=== PATIENT | male | born 1960 | race Caucasian/White ===

== ENCOUNTER → 2016-09-10 | Outpatient (CLI) | payer BC ==
--- NOTE | 2016-09-11 10:28 | PE ---
EXAMINATION TYPE: PET CT fusion skull to thigh DATE OF EXAM: 09/10/2016 6:29 PM COMPARISON: No prior examinations at this facility. Prior PET/CT: None HISTORY: Non-Hodgkin's lymphoma, Follicular lymphoma, left arm. TECHNIQUE: Following the intravenous administration of 13.5 mCi of F-18 FDG, whole body images are p erformed from the skull base to the midthigh. Images are reviewed on the computer in the coronal, ax ial, and sagittal planes. Reconstructed rotating images are created on independent workstation and r eviewed on the computer. A localization and attenuation correction CT is performed in conjunction w ith the PET scan. DLP: 343.28 mGycm SCAN: Initial Blood glucose: 94 mg/dL Average Mediastinum SUV: 1.8 Average Liver SUV: 2.2 FINDINGS: NECK: There may be some increased uptake within the tonsillar pillars greatest on the left measuring SUV value of 4.4. THORAX: No abnormal uptake is evident within the axillary regions. Suspicious lymphadenopathy is not identified. There may be slightly prominent lymph node present in the axillary region which has an MALCOLM V value of 0.7 which can be normal. ABDOMEN: No abnormal uptake PELVIS: No abnormal uptake OSSEOUS STRUCTURES: No abnormal uptake LOCALIZATION CT: Subtle fullness of the left tonsillar pillar may be present compared to the right. T his could be within normal limits for patient. There is a 1.4 cm enlarged left axillary lymph node. A few small shoddy lymph nodes are present within the inferior left axillary region. Descending thorac ic aorta at the level of main pulmonary artery is 3.5 cm. The main pulmonary artery bifurcation is 2. 6 cm. COMPARISON: No comparison images available IMPRESSION: 1. There may be some abnormal uptake within the tonsillar pillars greater on the left. 2. Suspicious uptake within the left axillary region of the patient's diagnosis of lymphoma is not id entified. 3. No suspicious additional areas of uptake identified.
== END | disposition home or self-care (01) ==
LOC: RADPETMAIN 11:49
PROVIDERS: ATTEND Internal Medicine Hematology & Oncology
DX: C82.80 Other types of follicular lymphoma, unspecified site (principal)
CPT/HCPCS: 78815; A9552

== ENCOUNTER → 2016-12-10 | Outpatient (CLI) | payer BC ==
--- NOTE | 2016-12-12 08:08 | PE ---
EXAMINATION TYPE: PET CT fusion skull to thigh DATE OF EXAM: 12/10/2016 COMPARISON: Most recent PET CT September 10, 2016 and older outside study September 13, 2015 HISTORY: Lymphoma initially diagnosed left axilla in July 2015 just completed chemotherapy October per patient. TECHNIQUE: Following the intravenous administration of 13.07 mCi of F-18 FDG, whole body images are performed from the skull base to the midthigh. Images are reviewed on the computer in the coronal, a xial, and sagittal planes. Reconstructed rotating images are created on independent workstation and reviewed on the computer. A localization and attenuation correction CT is performed in conjunction with the PET scan. SCAN: Subsequent Scan FINDINGS: SKULL BASE AND NECK: No suspicious hypermetabolic uptake is seen in the neck to suggest new neck john nopathy. Symmetric increase uptake at level of vocal cords is felt to reflect product of phonation. CHEST, MEDIASTINUM, AND HILAR REGION: There is redemonstration of abnormal left axillary lymph node o n axial image 69 measuring 1.8 x 1.3 cm felt stable in size versus prior exam and continues to remain non-hypermetabolic. No new areas of abnormal hypermetabolic uptake are identified. ABDOMEN AND PELVIS: No new suspicious areas of abnormal hypermetabolic uptake are identified. Liver a nd spleen sizes are stable. Mild diffuse uptake throughout the liver is redemonstrated without suspic ious focal increased uptake clearly seen. OSSEOUS STRUCTURES: No suspicious areas of abnormal hypermetabolic uptake are seen. Mild diffuse upta ke is present without suspicious focal areas of abnormal uptake or sclerotic or lytic lesions present OTHER CT: Small degree of bilateral gynecomastia is redemonstrated. IMPRESSION: Stable nonhypermetabolic left axillary lymph node. No new areas of abnormal hypermetaboli c uptake are seen to suggest active lymphoma recurrence.
== END | disposition home or self-care (01) ==
LOC: RADPETMAIN 12:39
PROVIDERS: ATTEND Internal Medicine Hematology & Oncology
DX: C82.04 Follicular lymphoma grade I, lymph nodes of axilla and upper limb (principal)
CPT/HCPCS: 78815; A9552

== ENCOUNTER → 2017-11-04 | Outpatient (CLI) | payer BC ==
--- NOTE | 2017-11-05 17:22 | PE ---
EXAMINATION TYPE: PET CT fusion skull to thigh DATE OF EXAM: 11/04/2017 COMPARISON: NONE Prior PET/CT: 12/10/2016 HISTORY: Lymphoma TECHNIQUE: Following the intravenous administration of 13.07 mCi of F-18 FDG, whole body images are performed from the skull base to the midthigh. Images are reviewed on the computer in the coronal, a xial, and sagittal planes. Reconstructed rotating images are created on independent workstation and reviewed on the computer. A localization and attenuation correction CT is performed in conjunction with the PET scan. DLP: 407.65 mGycm SCAN: Subsequent Blood glucose: 89 mg/dL Average Mediastinum SUV: 1.9 Average Liver SUV: 2.34 FINDINGS: NECK: No abnormal uptake THORAX: No abnormal uptake. Previous abnormal left axillary lymph node is normal uptake with an SUV o f 0.76. ABDOMEN: No abnormal uptake PELVIS: No abnormal uptake OSSEOUS STRUCTURES: No abnormal uptake LOCALIZATION CT: Ascending thoracic aorta at the level of main pulmonary artery is 3.7 cm patent main pulmonary artery the bifurcation is 3.2 cm. A left axillary lymph node appears smaller currently kylah suring 1.2 cm compared to 1.4 cm. No suspicious uptake in this region is evident. COMPARISON: No significant interval changes. IMPRESSION: 1. No suspicious uptake to suggest recurrent or metastatic lymphoma.
== END | disposition home or self-care (01) ==
LOC: RADPETMAIN 07:51
PROVIDERS: ATTEND Internal Medicine Hematology & Oncology
DX: C82.04 Follicular lymphoma grade I, lymph nodes of axilla and upper limb (principal)
CPT/HCPCS: 78815; A9552

== ENCOUNTER → 2018-03-23 | Outpatient (CLI) | payer MEDICARE, OTHER ==
--- NOTE | 2018-03-25 12:08 | MR ---
EXAMINATION TYPE: MR lumbar spine wo con DATE OF EXAM: 03/23/2018 COMPARISON: HISTORY: LBP, radiates into buttocks x 3 mos, no trauma/surgery, hx lymphoma CONTRAST: 0 mL intravenous . TECHNIQUE: Multiplanar, multisequence images of the lumbar spine were acquired. FINDINGS: Osseous structures appear unremarkable. Mild endplate changes are present L5-S1. There is some increased T1 signal in the left sacral ala. L5-S1: Broad-based disc bulge is present. There is some extension beyond the endplates compatible wit h subligamentous disc herniation. This has mild anterior thecal sac compression. No stenosis is prese nt. Neural foramen are patent. L4-L5: Some posterior disc space narrowing is present. Minimal disc flattening of the anterior thecal sac is present. No spinal canal stenosis. No foraminal stenosis. Mild facet hypertrophy is present . Ligamentum flavum laxity is present to mild degree. L3-L4: Broad-based disc bulge is present. No spinal canal stenosis or neural foraminal stenosis is pr esent. No focal disc herniation is evident. L2-L3: Central disc bulging is present with mild anterior thecal sac flattening. No AP spinal canal s tenosis or neural foraminal stenosis is present. L1-L2: No significant disc bulge or disc herniation. No spinal canal stenosis. No foraminal stenosi s. T12-L1: No significant disc bulge or disc herniation. No spinal canal stenosis. No foraminal stenos is. IMPRESSION: 1. Subligamentous disc herniation which is broad-based at L5-S1 has mild anterior thecal sac contact. 2. Minimal bulging present L2-3 through L4-5. Anterior thecal sac contact is present without stenosis .
== END | disposition home or self-care (01) ==
LOC: RADMRIMAIN 20:45
PROVIDERS: ATTEND Orthopaedic Surgery
DX: M51.27 Other intervertebral disc displacement, lumbosacral region (principal)
CPT/HCPCS: 72148

== ENCOUNTER → 2018-05-19 | Outpatient (CLI) | payer MEDICARE, OTHER ==
--- NOTE | 2018-05-20 08:43 | PE ---
EXAMINATION TYPE: PET CT fusion skull to thigh DATE OF EXAM: 05/19/2018 COMPARISON: MRI lumbar spine 03/23/2018 Prior PET/CT: Most recent dated 11/04/2017 HISTORY: Lymphoma TECHNIQUE: Following the intravenous administration of 12.07 mCi of F-18 FDG, whole body images are performed from the skull base to the midthigh. Images are reviewed on the computer in the coronal, a xial, and sagittal planes. Reconstructed rotating images are created on independent workstation and reviewed on the computer. A localization and attenuation correction CT is performed in conjunction with the PET scan. DLP: 487.4 mGycm SCAN: Follow up subsequent Blood glucose: 88 mg/dL Average Mediastinum SUV: 1.49 Average Liver SUV: 2.17 FINDINGS: NECK: There is mild increased uptake in the region of the tonsils slightly greater on the right. Thi s has a maximum SUV value of 3.05. There is mild uptake in the region of the vocal cords likely relat ed to inflammation. THORAX: No suspicious uptake ABDOMEN: No suspicious uptake PELVIS: No suspicious uptake OSSEOUS STRUCTURES: No suspicious uptake LOCALIZATION CT: There is some mild prominence of the tonsils. Direct visualization could be performe d. Prior anterior cervical fusion is evident. The ascending thoracic aorta at the level of main pulmo nary artery is 3.3 cm. The main pulmonary artery bifurcation is 2.8 cm. The appendix is normal. COMPARISON: No significant interval changes evident. IMPRESSION: 1. No suspicious uptake to suggest metastatic disease. 2. Mild increased uptake in the region of the tonsils which may be slightly full on localization CT. Direct visualization can be performed. Solitary metastasis in this location would be unusual.
== END | disposition home or self-care (01) ==
LOC: RADPETMAIN 07:48
PROVIDERS: ATTEND Internal Medicine Hematology & Oncology
DX: C82.04 Follicular lymphoma grade I, lymph nodes of axilla and upper limb (principal)
CPT/HCPCS: 78815; A9552

== ENCOUNTER → 2020-06-26 | Outpatient (CLI) | payer MEDICARE, OTHER ==
--- NOTE | 2020-06-26 13:38 | PE ---
Nuclear medicine PET/CT HISTORY: Lymphoma, subsequent, C 82.04, left axilla Patient received 11 mCi F-18 FDG intravenously delayed scanning was performed from skull base to the mid thighs. Localization and attenuation correction CT scan was performed. Correlation prior nuclear medicine PET/CT 05/19/2018 Chest and neck: Some groundglass opacities present peripherally in the left lower lobe, there is asso ciated hypermetabolic uptake, SUV 3.7. Some groundglass opacity in the left upper lobe towards the ap ex shows an SUV only 2.1. There is no pleural pericardial effusion. There is a nodular density in the left upper lobe, axial image 97 measuring only approximately 5 mm, no associated uptake, these are i nterval findings. There is no mediastinal, axillary, or hilar adenopathy. No supraclavicular or cervi jovana adenopathy. ABDOMEN: No evident liver mass. No retroperitoneal adenopathy. There is no ascites. Right-sided colon ic uptake likely is physiologic. No other suspicious uptake. Osseous structures show no suspicious uptake. Degenerative disc change of the lower lumbar spine. Pos top change noted to the lower cervical spine. IMPRESSION: Indeterminate lung uptake, lung nodule.
== END | disposition home or self-care (01) ==
LOC: RADPETMAIN 09:52
PROVIDERS: ATTEND Internal Medicine Hematology & Oncology
DX: C82.04 Follicular lymphoma grade I, lymph nodes of axilla and upper limb (principal); Z92.21 Personal history of antineoplastic chemotherapy
CPT/HCPCS: 78815; A9552

== ENCOUNTER → 2020-12-25 | Outpatient (CLI) | payer MEDICARE ==
--- NOTE | 2020-12-31 07:59 | PE ---
EXAMINATION TYPE: PET CT fusion skull to thigh DATE OF EXAM: 12/25/2020 COMPARISON: Prior PET/CT June 26, 2020 and older studies. HISTORY: Lymphoma initially diagnosed left axilla July 2015 completed radiation treatment 2016 on c hemotherapy up until 4 months ago TECHNIQUE: Following the intravenous administration of 10.54 mCi of F-18 FDG, whole body images are performed from the skull base to the midthigh. Images are reviewed on the computer in the coronal, a xial, and sagittal planes. Reconstructed rotating images are created on independent workstation and reviewed on the computer. A localization and attenuation correction CT is performed in conjunction with the PET scan. Blood glucose level equals 102. SCAN: Subsequent Scan FINDINGS: SKULL BASE AND NECK: Symmetric hypermetabolic uptake bilateral masseter muscles could reflect produc ts of recent meal ingestion. No obvious mass at this level. No suspicious hypermetabolic lymph nodes. CHEST, MEDIASTINUM, AND HILAR REGION: Resolved ground glass opacities in periphery of the left upper lobe and periphery of the left lung ba se. No new areas of abnormal hypermetabolic uptake. ABDOMEN AND PELVIS: Nonspecific bowel uptake. Normal excretion. No new suspicious hypermetabolic upta ke or adenopathy. OSSEOUS STRUCTURES: No new suspicious hypermetabolic uptake. OTHER CT: Small degree of subareolar gynecomastia redemonstrated. The lung volumes again seen. Lang ry artery calcification redemonstrated. Postsurgical change lower cervical spine again seen. IMPRESSION: Interval Resolution of groundglass opacities or suspected infectious process left lung, n o new suspicious hypermetabolic uptake to suggest active lymphoma recurrence.
== END | disposition home or self-care (01) ==
LOC: RADPETMAIN 09:07
PROVIDERS: ATTEND Internal Medicine Hematology & Oncology
DX: Z85.72 Personal history of non-Hodgkin lymphomas (principal)
CPT/HCPCS: 78815; A9552

== ENCOUNTER → 2022-09-30 | Outpatient (CLI) | payer OTHER ==
--- NOTE | 2022-10-01 11:24 | PE ---
EXAMINATION TYPE: PET CT fusion skull to thigh DATE OF EXAM: 09/30/2022 CLINICAL INDICATION:Male, 62 years old with history of C82.04; lymphoma TECHNIQUE: Following the intravenous administration of 12.0 mCi of F-18 FDG, whole body images are performed from the skull base to the midthigh. Images are reviewed on the computer in the coronal, a xial, and sagittal planes. Reconstructed rotating images are created on independent workstation and reviewed on the computer. A non-contrast CT is performed in conjunction with the PET scan. Glucose level 127 mg/dL COMPARISON: CT None, PET/CT most recent 01/14/2022, FINDINGS: Mediastinal SUV mean is 1.6. Hepatic parenchyma SUV mean is 2.3 SKULL BASE AND NECK: No suspicious FDG activity. CHEST, MEDIASTINUM, AND HILAR REGION: No suspicious FDG activity. ABDOMEN AND PELVIS: No suspicious FDG activity. Physiologic uptake within the bowel. OSSEOUS STRUCTURES: No suspicious FDG activity. OTHER CT: Mild atherosclerosis of the left carotid bifurcation. Mild vascular and coronary artery jovana cifications. Mild gynecomastia changes. Fat-containing bilateral inguinal hernias. Mild multilevel di sc degeneration changes of the spine. IMPRESSION: No suspicious FDG activity.
== END | disposition home or self-care (01) ==
LOC: RADPETMAIN 14:17
PROVIDERS: ATTEND Internal Medicine Hematology & Oncology
DX: C82.04 Follicular lymphoma grade I, lymph nodes of axilla and upper limb (principal)
CPT/HCPCS: 78815; A9552

== ENCOUNTER → 2023-10-21 | Outpatient (CLI) | payer OTHER ==
--- NOTE | 2023-10-22 13:29 | PE ---
EXAMINATION TYPE: PET CT fusion skull to thigh DATE OF EXAM: 10/21/2023 CLINICAL INDICATION:Male, 63 years old with history of C82.04 FOLLICULAR LYMPHOMA GRADE I, NODES OF A XILL; TECHNIQUE: Following the intravenous administration of 12.64 mCi of F-18 FDG, whole body images are performed from the skull base to the midthigh. Images are reviewed on the computer in the coronal, axial, and sagittal planes. Reconstructed rotating images are created on independent workstation and reviewed on the computer. A non-contrast CT is performed in conjunction with the PET scan. Glucose level 101 mg/dL CT DLP: 664 mGycm, Automated exposure control for dose reduction was used. COMPARISON: CT None, PET/CT 09/30/2022, FINDINGS: Mediastinal SUV mean is 2.1. Hepatic parenchyma SUV mean is 2.8 SKULL BASE AND NECK: * No suspicious FDG activity. * Posterior neck muscle strain on the left Max SUV 2.7. CHEST, MEDIASTINUM, AND HILAR REGION: No suspicious FDG activity. ABDOMEN AND PELVIS: No suspicious FDG activity. Physiologic uptake within the bowel. OSSEOUS STRUCTURES: No suspicious FDG activity. OTHER CT: Mild atherosclerosis of the left carotid bifurcation. Mild vascular and coronary artery jovana cifications. Mild gynecomastia changes. Fat-containing bilateral inguinal hernias. Mild multilevel di sc degeneration changes of the spine. Fixation hardware in the cervical spine hardware appears intact . IMPRESSION: No suspicious FDG activity.
== END | disposition home or self-care (01) ==
LOC: RADPETMAIN 10:14
PROVIDERS: ATTEND Internal Medicine Hematology & Oncology
DX: C82.04 Follicular lymphoma grade I, lymph nodes of axilla and upper limb (principal)
CPT/HCPCS: 78815; A9552

== ENCOUNTER → 2024-10-25 | Outpatient (CLI) | payer OTHER ==
--- NOTE | 2024-10-26 09:32 | PE ---
EXAMINATION TYPE: PET CT fusion skull to thigh DATE OF EXAM: 10/25/2024 CLINICAL INDICATION:Male, 64 years old with history of C82.04 lymphoma; TECHNIQUE: Following the intravenous administration of 10.29 mCi of F-18 FDG, whole body images are performed from the skull base to the Mid thigh. Images are reviewed on the computer in the coronal, axial, and sagittal planes. Reconstructed rotating images are created on independent workstation an d reviewed on the computer. A non-contrast CT is performed in conjunction with the PET scan. Glucos e level 104 mg/dL CT DLP: 905 mGycm, Automated exposure control for dose reduction was used. COMPARISON: CT None, PET/CT 10/21/2023, MRI: None FINDINGS: FINDINGS: Mediastinal SUV mean is 1.9. Hepatic parenchyma SUV mean is 2.3 SKULL BASE AND NECK: No suspicious FDG activity. CHEST, MEDIASTINUM, AND HILAR REGION: No suspicious FDG activity. ABDOMEN AND PELVIS: No suspicious FDG activity. Physiologic uptake within the bowel. OSSEOUS STRUCTURES: No suspicious FDG activity. OTHER CT: Mild atherosclerosis of the bilateral carotid bifurcation. Left anterior descending stent w ith mild coronary artery calcifications. Mild gynecomastia changes. Fat-containing bilateral inguinal hernias. Mild multilevel disc degeneration changes of the spine. Fixation hardware in the cervical s pine hardware appears intact. IMPRESSION: No suspicious FDG activity. [facility], , 10/26/2024 9:30 AM
== END | disposition home or self-care (01) ==
LOC: RADPETMAIN 10:55
PROVIDERS: ATTEND Internal Medicine Hematology & Oncology
DX: C82.04 Follicular lymphoma grade I, lymph nodes of axilla and upper limb (principal)
CPT/HCPCS: 78815; A9552